=== PATIENT | male | born 1955 | race Caucasian/White ===

== ENCOUNTER 2024-09-21 06:27 | Inpatient (IN) | payer MEDICARE, OTHER ==
[~2024-09-21] VITALS: Ht 172.7 cm; Wt 77.1 kg
[2024-09-21] MEDS ORDERED: dexaMETHasone SOD PHOSPHATE 2 ML ONE (07:05)
[2024-09-21] MEDS ORDERED: OXYMETAZOLINE HCL NASAL SPRAY 30 ML BOTTLE NS ONE (07:05)
[2024-09-21] MEDS ORDERED: VANCOMYCIN 1 GM VIAL ONE (07:05)
[2024-09-21] MEDS ORDERED: ANESTHESIA TRAY IN PYXIS 1 EA TRAY MC ONE (07:05)
[2024-09-21] MEDS ORDERED: LIDOCAINE 2%-EPI 1:100,000 30 ML VIAL ONE (07:05)
[2024-09-21] MEDS ORDERED: LIDOCAINE 2% JEL UROJET 10 ML MM ONE (07:10)
[2024-09-21] MEDS ORDERED: LABETALOL 20 MG/4 ML VIAL ONE (07:11)
[2024-09-21] MEDS ORDERED: Magnesium 1 GM/2 ML VIAL ONE (07:11)
[2024-09-21] MEDS ORDERED: FENTANYL PF 100MCG/2ML AMPUL ONE (07:11)
[2024-09-21] MEDS ORDERED: FAMOTIDINE/PF INJ 20 MG/2 ML VIAL IV ONE (07:12)
[2024-09-21] MEDS ORDERED: MIDAZOLAM HCL 2 MG/2ML VIAL ONE (07:12)
[2024-09-21] MEDS ORDERED: KETOROLAC TROMETHAMINE INJ 30 MG/ML VIAL IV PRN (09:00)
[2024-09-21] MEDS ORDERED: HYDROMORPHONE 1 MG/1 ML DISP.SYRIN IV PRN (09:00)
[2024-09-21] MEDS: HYDROMORPHONE INJ 2 MG/ML DISP.SYRIN IV PRN (10:16)
[2024-09-21] MEDS ORDERED: ONDANSETRON HCL/PF 4 MG/2 ML VIAL IV PRN (10:30)
[2024-09-21] MEDS: IV NS 0.9% 1,000 ML IV PRN (10:44)
[2024-09-21] MEDS ORDERED: ONDANSETRON HCL/PF 4 MG/2 ML VIAL IVP PRN (12:00)
[2024-09-21] MEDS ORDERED: MAGNESIUM HYDROXIDE 30 ML UDC PO PRN (12:00)
[2024-09-21] MEDS ORDERED: Z GUARD REMEDY 4 OZ OINT TP PRN (12:00)
[2024-09-21] MEDS ORDERED: MAG HYDROX/AL HYDROX/SIMETH 30 ML UDC PO PRN (12:00)
[2024-09-21] MEDS ORDERED: ACETAMINOPHEN 325 MG TABLET PO PRN (12:00)
[2024-09-21] MEDS ORDERED: ZOLPIDEM TARTRATE 5 MG TABLET PO PRN (12:00)
[2024-09-21 14:26] VITALS: BP 150/74; TEMP 98.2; O2SAT 96
[2024-09-21] MEDS: VANCOMYCIN 1 GM in IV D5W 250ml IV SCH (18:05)
[2024-09-22 07:54] LABS: HEMATOCRIT 40 % (39-51); HEMOGLOBIN 12.8 g/dL (13.5-17.5); LYMPHOCYTES # (AUTO) 1.5 K/uL (0.8-4.8); LYMPHOCYTES % (AUTO) 8.3 % (20.0-44.0); MEAN CORPUSCULAR HEMOGLOBIN 28 PG (26.0-33.0); MEAN CORPUSCULAR HGB CONC 32 g/dl (31.0-36.0); MEAN CORPUSCULAR VOLUME 86 fL (80-96); MONOCYTES % (AUTO) 5.7 % (2.0-12.0); NEUTROPHILS # (AUTO) 15.9 K/uL (1.8-8.9); PLATELET COUNT (AUTO) 258 K/uL (150-450); RED BLOOD CELL COUNT(AUTO) 4.59 MIL/uL (4.5-6.0); RED CELL DISTRIBUTION WIDTH 14.5 % (11.5-15.0); WHITE BLOOD COUNT (AUTO) 18.5 K/uL (4.3-11.0)
[2024-09-22 08:00] VITALS: BP 126/60; TEMP 98.4; O2SAT 96
[2024-09-22 10:28] LABS: CALCIUM, SERUM 8.8 mg/dL (8.5-10.1); CREATININE 0.8 mg/dL (0.6-1.3); MAGNESIUM 2.5 mg/dL (1.8-2.4); PHOSPHORUS 3.7 mg/dL (2.5-4.9); POTASSIUM 3.7 mmol/L (3.5-5.1)
[2024-09-22] MEDS: ACETAMINOPHEN 325 MG TABLET PO PRN (12:18)
[2024-09-22 16:00] VITALS: BP_SYST 112; BP_SYST 142; BP_DIAS 69; BP_DIAS 82; TEMP 98.6; TEMP 98.8; O2SAT 98
[2024-09-22] MEDS: VANCOMYCIN 1 GM in IV D5W 250 ML IV SCH (17:51)
[2024-09-22] MEDS ORDERED: D5W IV SCH (18:00)
[2024-09-22] MEDS ORDERED: VANCOMYCIN IV SCH (18:00)
[2024-09-22 20:00] VITALS: BP 141/65; TEMP 98.4; O2SAT 97
[2024-09-23 06:29] LABS: BASOPHILS % (AUTO) 0.3 % (0.0-2.0); EOSINOPHILS # (AUTO) 0.1 K/uL (0.0-0.7); EOSINOPHILS % (AUTO) 0.6 % (0.0-6.0); HEMATOCRIT 37 % (39-51); LYMPHOCYTES # (AUTO) 3.2 K/uL (0.8-4.8); LYMPHOCYTES % (AUTO) 28.9 % (20.0-44.0); MEAN CORPUSCULAR HEMOGLOBIN 28 PG (26.0-33.0); MEAN CORPUSCULAR HGB CONC 33 g/dl (31.0-36.0); MEAN CORPUSCULAR VOLUME 86 fL (80-96); MONOCYTES # (AUTO) 0.8 K/uL (0.1-1.30); MONOCYTES % (AUTO) 7.6 % (2.0-12.0); NEUTROPHILS % (AUTO) 62.6 % (43.0-81.0); PLATELET COUNT (AUTO) 215 K/uL (150-450); RED BLOOD CELL COUNT(AUTO) 4.29 MIL/uL (4.5-6.0); RED CELL DISTRIBUTION WIDTH 14.7 % (11.5-15.0); WHITE BLOOD COUNT (AUTO) 11.2 K/uL (4.3-11.0)
[2024-09-23 07:30] VITALS: BP 143/77; TEMP 98.6; O2SAT 98
== END 2024-09-23 09:35 | disposition home or self-care (01) | DRG 908 ==
LOC: DS 06:27 → MED 10:02
PROVIDERS: ADMIT Student in an Organized Health Care Education/Training Program; ATTEND Student in an Organized Health Care Education/Training Program
PROC: 0N5R0ZZ Destruction of Maxilla, Open Approach (ICD-10-PCS; 2024-09-21)
PROC: 0N5V0ZZ Destruction of Left Mandible, Open Approach (ICD-10-PCS; 2024-09-21)
PROC: 0N5T0ZZ Destruction of Right Mandible, Open Approach (ICD-10-PCS; 2024-09-21)
PROC: 0NSR0ZZ Reposition Maxilla, Open Approach (ICD-10-PCS; 2024-09-21)
PROC: 09UR07Z Supplement Left Maxillary Sinus with Autologous Tissue Substitute, Open Approach (ICD-10-PCS; 2024-09-21)
PROC: 0NUV07Z Supplement Left Mandible with Autologous Tissue Substitute, Open Approach (ICD-10-PCS; 2024-09-21)
PROC: 0NUT07Z Supplement Right Mandible with Autologous Tissue Substitute, Open Approach (ICD-10-PCS; 2024-09-21)
PROC: 0NSV04Z Reposition Left Mandible with Internal Fixation Device, Open Approach (ICD-10-PCS; 2024-09-21)
PROC: 0NST04Z Reposition Right Mandible with Internal Fixation Device, Open Approach (ICD-10-PCS; 2024-09-21)
PROC: 0NPW04Z Removal of Internal Fixation Device from Facial Bone, Open Approach (ICD-10-PCS; principal; 2024-09-21 07:30)
DX: T86.831 Bone graft failure (principal); M87.9 Osteonecrosis, unspecified; S02.40DK Maxillary fracture, left side, subsequent encounter for fracture with nonunion; S02.609K Fracture of mandible, unspecified, subsequent encounter for fracture with nonunion; T84.69XA Infection and inflammatory reaction due to internal fixation device of other site, initial encounter; Y83.8 Other surgical procedures as the cause of abnormal reaction of the patient, or of later complication, without mention of misadventure at the time of the procedure; Y92.009 Unspecified place in unspecified non-institutional (private) residence as the place of occurrence of the external cause; X58.XXXD Exposure to other specified factors, subsequent encounter; D72.829 Elevated white blood cell count, unspecified; D64.9 Anemia, unspecified; M60.9 Myositis, unspecified; J32.9 Chronic sinusitis, unspecified
CPT/HCPCS: 36415; 80048-TC; 83735-TC; 84100-TC; 85025-TC; A4223; C1713; G0378; J0690; J1100; J1171; J1308; J2250; J2405; J2704; J2765; J3010; J3370; J3475; J3490; J7030; J7060